=== PATIENT | female | born 2005 | race Caucasian/White ===

== ENCOUNTER 2023-07-27 09:04 | Emergency (ER) | payer OTHER, SELFPAY ==
[2023-07-27 09:11] VITALS: BP 116/90
--- NOTE | 2023-07-27 09:31 | ED.GENMED ---
History of Present Illness
General
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
Source: patient and family
Time Seen by Provider: 07/27/23 09:14
Travel History
Have you had any contact with someone who has COVID-19?: No
Do you have any symptoms of coronavirus? Fever > 100 degrees, chills, cough, shortness of breath, sore throat, loss of taste or smell, muscle aches, or headache?: No
History of Present Illness
History of Present Illness:
17-year-old female with past medical history of dysmenorrhea presenting the emergency department for evaluation of severe lower abdominal pain with onset around 8 AM described to be diffuse pelvic area, constant, sharp, nonradiating like a pinching
sensation. Patient states that this is different from usual menstrual or pain she will experience premenstruation. Patient notes that she was sexually active last night but did not have any pain during intercourse and notes that intercourse is
usually not painful. She states that majority of time she does use condoms however intermittently does not. States only sexually active with 1 partner and does not have any concern for STI. Patient states at 5 AM she did awake to urinate and did
not have any symptoms at that time but when she woke up again at 8 AM the pain was present and she also noted some dysuria. Patient denies any fevers, chills, rigors, back or flank pain, nausea, vomiting. Of note, patient states that she had her
IUD placed for the dysmenorrhea and states that it did initially help but over the last few months symptoms have started to gradually worsen. She has been given prescription for outpatient ultrasound by her INTERIOR SURFACE INSULATION WORKER but states has not had this performed.
Past History
Past History
ED Past Medical History: Other (Dysmenorrhea)
ED Past Surgical History: None
Social History
Tobacco: Vaping
Alcohol: None
Drug: None
Personal: Single
Living: with family
Employment: Student
Review of Systems
Review of Systems
All Other Systems: ROS reviewed and negative except as documented in HPI and ROS
Phy Exam
Physical Exam
Physical Exam:
GENERAL: Alert , appears significantly uncomfortable
EYE: clear conjunctiva b/l
HEAD: NCAT
ENT: o/p clr, mmm.
CARDIAC: Tachycardic rate and rhythm
LUNGS: Clear breath sounds bilaterally, no acute respiratory distress, no wheezes/rales/rhonchi
ABDOMEN: Soft, without focal tenderness, no r/g, no cvat
Pelvic exam: Chaperoned by ED RN Iza: Speculum exam reveals pain. There is a clear whitish discharge that is overall fairly minimal. IUD string was visualized. Bimanual exam was also causing the patient's significant discomfort but no
cervical motion tenderness. There is tenderness to the bilateral adnexal region
NEUROLOGICAL: Alert and oriented
SKIN: Warm and dry, skin intact.
MUSCULOSKELETAL: No edema, well perfused.
PSYCH: Normal and appropriate interaction.
Scores
Heart Failure Risk
Heart Failure Risk Score: Not Applicable
Heart Score for Chest Pain Patients
STEMI patient?: Not applicable
Withdrawal Assessment of Alcohol
Withdrawal Assessment Completed?: Not applicable
Course
Orders/Labs/Results
Orders:
Orders
07/27/23 09:30
Chlamydia/GC by PCR Urgent
GRACY Source: Urine
Specimen Description:
Source:: URINE
Date Specimen was Collected: 07/27/23
Time Specimen was Collected: 11:32
Ketorolac [Toradol] 30 mg IV NOW STA
Test Result ONCE
US Pelvis W Transvag Combined Urgent
Reason For Exam: severe lower abd pain, hx dysmenorrhea
07/27/23 09:38
Complete Blood Count/With Diff Urgent
Comprehensive Metabolic Panel Urgent
HCG, Serum Qualitative Screen Urgent
07/27/23 09:42
0.9% Sodium Chloride 1000 ml [Nss] 1,000 ml IV BOLUS
07/27/23 11:26
Urinalysis Reflex To Culture Urgent
Date Specimen was Collected: 07/27/23
Time Specimen was Collected: 10:44
07/27/23 11:32
Add On - Microbiology Routine
Comments:: LABEL WASNT PRINTED AT TIME SPECIMEN SENT.
Tests Added?: ADD ON GC/CHLAMYDIA
Abnormal Lab Results
07/27/23 07/27/23
09:38 11:26
RBC 4.13 L 10^6/uL
(4.20-5.40)
Hct 36.6 L %
(37.0-47.0)
MCH 32.4 H pg
(27.0-31.0)
MPV 11.1 H fL
(7.4-10.4)
Carbon Dioxide 20 L mmol/L
(22-30)
Total Bilirubin 1.8 H mg/dl
(0.2-1.3)
Albumin 5.1 H g/dl
(3.5-5.0)
Urine Ketones 2+ A
(Negative)
07/27/23 09:38
07/27/23 09:38
Vital Signs
Initial and Last Documented VS:
Initial Vital Signs
Temp Pulse Resp BP Pulse Ox
99.0 F 131 20 116/90 99
07/27/23 09:11 07/27/23 09:11 07/27/23 09:11 07/27/23 09:11 07/27/23 09:11
Last Documented Vital Signs
Temp Pulse Resp BP Pulse Ox
99.0 F 131 20 116/90 99
07/27/23 09:11 07/27/23 09:11 07/27/23 09:11 07/27/23 09:11 07/27/23 09:11
MDM/Problems Addressed
Differential Diagnosis Includes:
PID, ovarian torsion, ovarian cyst, endometriosis, dysmenorrhea, vaginitis
MDM/Problems Addressed:
17-year-old female presenting to the emergency department for evaluation of significant and sudden pain within the pelvic region. Known history of dysmenorrhea but patient states this pain does feel very different than her usual menstrual pain.
She did have considerable pain during speculum exam as well as bimanual exam. Given patient is sexually active PID certainly considered. Patient did states she is only sexually active with 1 partner for the last year and notes she has no concern
for STI however given there is a small amount of discharge on the pelvic exam will obtain gonorrhea and Chlamydia testing through the urine. Also considering bacterial vaginosis. Will obtain an ultrasound to evaluate for ovarian torsion however
given the bilateral nature of the pain this is much less likely. Toradol ordered for pain control. Reassessment following.
*Radiology
Radiology exam reviewed: radiology read reviewed
*Pulse Oximetry
Patient hypoxic: no
*Critical Care Note
Total Time (30-74mins, 75-104mins- exclusive of procedures): Not Applicable
Comment
Comment:
9:58 AM: Following Toradol, patient notes pain is starting to improve. Awaiting ultrasound.
10:52 AM: patient continues to rest comfortably. She will be going to ultrasound momentarily.
Patient Management
Escalation/DeEscalation of care consider admission/obs:
Ultrasound shows a 5.3 cm hemorrhagic cyst on the right ovary. Patient's pain has remained significantly improved following medications and she reports she is mostly pain-free at this time. Patient was provided with a copy of her ultrasound as
well as the ultrasound report. She will follow-up with her SEWER AND DRAIN TECHNICIAN. Informed that she needs a repeat ultrasound in 2 to 3 months. Overall I do not have suspicion for ovarian torsion nor infectious etiology. Aware of return precautions but
otherwise stable for discharge home.
ED Attending Note
-
Portions of this chart may have been created with voice recognition software.� Occasional wrong word or��sound alike� substitutions may have occurred due to the inherent limitations of voice recognition software.
Discharge Plan
Departure
Patient Disposition: Home (Routine Discharge)
Date of Disposition: 07/27/23
Time of Disposition: 12:16
Patient with high blood pressure during this ER visit?: No
Discharge Problem:
Ovarian cyst, right
Instructions: Ovarian cysts
Prescriptions:
No Action
No Current Medications
0
Referrals:
Osiris Luke CRNP [Family Provider] -
Interventions
Interventions:
*Risk Screen - Suicide Last Done: 07/27/23 12:12
*General Assessment Last Done: 07/27/23 12:12
*Neglect/Abuse Screening Last Done: 07/27/23 12:12
ED- Fall Risk Assessment Last Done: 07/27/23 12:12
*ED COVID-19 Vaccine History Last Done: 07/27/23 09:11
*Nursing Disposition Last Done: 07/27/23 12:27
ED-Female Genitourinary Assessment Last Done: 07/27/23 09:44
Discharge Date and Time
Discharge Date/Time: 07/27/23 12:27
Print Language: LITHUANIAN
[2023-07-27] MEDS: TORADOL 30 MG IV (09:38)
[2023-07-27] MEDS: NSS 1000 IV (09:42)
[2023-07-27 09:50] LABS: % Basophils 0.7 % (0-2); % Eosinophils 1.2 % (0-6); % Immature Granulocytes 0.2 % (0-0.5); % Lymphocytes 28.9 % (20.5-51.1); % Monocytes 6.4 % (1.7-9.3); % Neutrophils 62.6 % (42.2-75.2); Absolute Eosinophils 0.1 10^3/uL (0-0.7); Absolute Lymphocytes 1.7 10^3/uL (1.2-3.4); Absolute Monocytes 0.4 10^3/uL (0.1-0.6); Absolute Neutrophils 3.7 10^3/uL (1.4-6.5); Hematocrit 36.6 % (37.0-47.0); Hemoglobin 13.4 g/dL (12.0-16.0); Mean Corp Hgb Conc. 36.6 g/dL (33.0-37.0); Mean Corpuscular Hgb 32.4 pg (27.0-31.0); Mean Corpuscular Volume 88.6 fL (81.0-99.0); Mean Platelet Volume 11.1 fL (7.4-10.4); Nucleated Red Blood Cells % 0 %; Platelet Count 196 10^3/uL (130-400); Red Blood Cell Count 4.13 10^6/uL (4.20-5.40); Red Cell Dist. Width 11.9 % (11.5-14.5); White Blood Cell Count 5.8 10^3/uL (4.8-10.8)
[2023-07-27 09:58] LABS: HCG, Serum Qualitative Screen Negative
[2023-07-27 10:00] LABS: ALT (SGPT) 17 U/L (0-35); AST (SGOT) 26 U/L (14-36); Albumin 5.1 g/dl (3.5-5.0); Alkaline Phosphatase 53 U/L (38-126); Blood Urea Nitrogen 12 mg/dl (7-17); Calcium 10.2 mg/dl (8.4-10.2); Carbon Dioxide 20 mmol/L (22-30); Chloride 105 mmol/L (98-107); Glucose 96 mg/dl (70-99); Potassium 3.7 mmol/L (3.5-5.1); Sodium 136 mmol/L (135-145); Total Bilirubin 1.8 mg/dl (0.2-1.3); Total Protein 7.8 g/dl (6.3-8.2); eGFR > 60.00
[2023-07-27 11:47] LABS: Urine Albumin Negative (Neg - Trace); Urine Bilirubin Negative (Negative); Urine Character Clear (Clear); Urine Color Yellow; Urine Glucose Negative (Negative); Urine Ketone 2+ (Negative); Urine Leukocyte Negative (Negative); Urine Nitrite Negative (Negative); Urine Occult Blood Negative (Negative); Urine Specific Gravity 1.005 (<1.030); Urine Urobilinogen Negative (Neg - 1+)
== END 2023-07-27 12:27 | disposition home or self-care (01) ==
LOC: EMR 09:04
PROVIDERS: Physician Assistant Medical; EMERGENCY PHYSICIAN Emergency Medicine; FAMILY PHYSICIAN Nurse Practitioner Family
DX: N83.291 Other ovarian cyst, right side (principal); F17.290 Nicotine dependence, other tobacco product, uncomplicated
CPT/HCPCS: 99284; 96374; 96361; 76830; 76856; 80053; 81003; 84703; 85025; 87491; 87591

== ENCOUNTER → 2024-04-20 10:06 | Outpatient (REF) | payer BC, SELFPAY | LOC: RAD 10:06 | PROVIDERS: ATTENDING PHYSICIAN Obstetrics & Gynecology; FAMILY PHYSICIAN Physician Assistant | DX: N83.209 Unspecified ovarian cyst, unspecified side (principal) | CPT/HCPCS: 76830; 76856 ==